=== PATIENT | male | born 1995 | race Caucasian/White ===

== ENCOUNTER → 2021-10-05 | Day surgery (SDC) | payer OTHER ==
[~2021-10-05] VITALS: Ht 175.3 cm; Wt 83.0 kg
[~2021-10-05] MED LIST: ZYRTEC10 MG PO
[2021-10-05 09:46] LABS: HCT 49.1 % (42.0-52.0); HGB 17.5 g/dl (13.2-18.0); MCH 29.5 pg (25.0-31.0); MCHC 35.6 g/dL (32.0-36.0); MCV 82.8 fL (78.0-100.0); MPV 9.8 fL (6.0-9.5); RBC 5.93 M/uL (4.70-6.00); RDW 11.9 % (11.5-14.0); WBC 8.6 K/uL (4.0-10.5)
[2021-10-05 09:48] LABS: ALBUMIN 4.7 g/dL (3.4-5.0); BILIRUBIN - TOTAL 0.8 mg/dL (0.2-1.0); BUN/CREAT RATIO (CALC) 13.3 RATIO; CREATININE 0.9 mg/dL (0.67-1.17); GLOBULIN (CALCULATION) 3.6 g/dL; POTASSIUM 3.6 mmol/L (3.5-5.1); TOTAL PROTEIN 8.3 g/dL (6.4-8.2)
== END | disposition home or self-care (01) ==
LOC: FAS 08:31
PROVIDERS: Surgery
DX: K58.0 Irritable bowel syndrome with diarrhea (principal); R14.0 Abdominal distension (gaseous); R10.9 Unspecified abdominal pain; R19.8 Other specified symptoms and signs involving the digestive system and abdomen; R15.2 Fecal urgency; Z80.0 Family history of malignant neoplasm of digestive organs; Z83.71 Family history of colonic polyps
CPT/HCPCS: 36415; 80053; J2250; J2704; J7120